=== PATIENT | female | born 1990 | race African-American/Black ===

== ENCOUNTER 2016-07-29 22:56 | Emergency (ER) | payer OTHER ==
[~2016-07-29] VITALS: Ht 157.5 cm; Wt 72.6 kg
[~2016-07-29 22:56] MED LIST: IBUPROFEN800 MG PO
[2016-07-30] MEDS ORDERED: ZOFRAN ODT4 M1 SL (00:20)
[2016-07-30] MEDS ORDERED: CILOXAN5 ML OPH (00:20)
--- NOTE | 2016-07-30 00:20 | ED EYE COMPLAINT ---
History of Present Illness General Chief Complaint: Eye Problems Stated Complaint: ?PINK EYE,BURNING,ITCHY,DISCHARGE Source: patient, old records Exam Limitations: no limitations Vital Signs & Intake/Output Vital Signs & Intake/Output Vital Signs Date Time Temp Pulse Resp B/P Pulse O2 O2 Flow FiO2 Ox Delivery Rate 07/30 0050 97.2 75 18 132/80 99 Room Air 07/30 0049 Room Air 07/29 2259 97.3 78 18 139/81 99 Room Air ED Intake and Output 07/30 0000 07/29 1200 Intake Total Output Total Balance Patient 160 lb Weight Allergies Coded Allergies: NO KNOWN ALLERGIES (07/21/15) Reconcile Medications Ciprofloxacin (Ciloxan) 0.3 % DROPS 2 GTT OPH TID conjunctivitis Ibuprofen 800 MG TAB 1 TAB PO TID PRN PAIN Ondansetron (Zofran Odt) 4 MG TAB.RAPDIS 1 TAB SL TID PRN nausea Triage Note: PT TO ED FOR EYE REDNESS, DRAINAGE AND ITCHINESS. Triage Nurses Notes Reviewed? yes Onset: Abrupt Duration: day(s): (1), constant Timing: recent history Injury Environment: home Severity: moderate Severity Numbers: 5 No Modifying Factors: none Left Eye Associated Symptoms: itching Right Eye Associated Symptoms: itching : No Patient currently breastfeeds: No HPI: 26-year-old male presents to emergency room for evaluation complaining of bilateral eye redness, and itching associated with discharge from both of her eyes since this morning. She states that she used her sister's makeup and yesterday prior to the symptoms beginning. She does wear contacts and glasses however has not worn them since his symptoms began. She denies any vision changes or vision loss, she denies any swelling to her face no recent trauma or injury. No fevers or chills. No modifying factors or associated symptoms otherwise Upon my questioning the patient states that she felt nauseous she denies any abdominal pain chest pain shortness of breath and states that the symptoms suddenly began while she was in the waiting room she denies any change in her bowel movements there's been no episodes of vomiting. (JOSE COTTON,JAUN) Past History Travel History Traveled to [place] past 21 day No Medical History Any Pertinent Medical History? see below for history Neurological: NONE EENT: NONE Cardiovascular: NONE Respiratory: NONE Gastrointestinal: NONE Hepatic: FATTY LIVER Renal: NONE Musculoskeletal: NONE Psychiatric: NONE Endocrine: NONE Surgical History Surgical History: N Psychosocial History What is your primary language Chinese Tobacco Use: Never used Daily Tobacco Use Amount/Type: => 5 Cigarettes daily ETOH Use: denies use Illicit Drug Use: denies illicit drug use Family History Hx Contributory? No (JUAN COY) Review of Systems Review of Systems Constitutional: Reports: see HPI. All Other Systems: Reviewed and Negative Comments Review of systems: See HPI, All other systems negative. Constitutional, no chills no fever, no malaise HEENT: No visual changes no sore throat no congestion, Cardiovascular: No chest pain , no palpitation Skin, no jaundice no rashes, no change in skin Respiratory: No dyspnea no cough no sputum GI: No nausea no vomiting, no diarrhea : No dysuria Muscle skeletal: No joint pain, no joint swelling, no back pain Neurologic: No numbness no headache Psych: No stress Heme/endocrine: No bruising no bleeding Immunology: No lymphadenopathy, (JUAN COY) Physical Exam General Appearance: well developed/nourished, no apparent distress, alert, awake General Inspection: normal inspection Eyelid: normal inspection, everted for exam Conjunctiva/Sclera: injected Cornea: normal inspection EOM: intact Pupil: normal accommodation, normal pupil, PERRL General Inspection: normal inspection Eyelid: normal inspection Conjunctiva/Sclera: injected Cornea: normal inspection EOM: intact Pupil: normal accommodation, normal pupil, PERRL Physical Exam Comments: Well-developed well-nourished patient in no apparent distress. Head/Face: Atraumatic, no maxillary/frontal sinus tenderness, no facial swelling Eyes: PERRL, EOMI, B/L conjunctival injection. No nystagmus there is no periorbital erythema or edema Ear:External auditory canal and Tympanic membranes clear, no erythema, no FB. Nose: atraumatic.Normal inspection: No bleeding, no septal hematoma Throat: Moist mucous membranes.Pharynx normal. No pharyngeal erythema/exudate seen. No stridor/drooling or assymetry. No swelling or edema. Neck: Supple, no lymphadenopathy, FROM Back: FROM, Nontender Cardiovascular: Regular rate and rhythms no murmurs Respiratory: Chest nontender.There were no bony deformities, no asymmetry. No respiratory distress. Patient speaking in full complete sentences. Breath sounds clear to auscultation bilaterally: NO W/R/R Extremities: full range of motion Neuro: Alert and oriented x3 Skin: Warm & dry;No appreciable rash on exposed skin Psych: Mood affect normal, normal memory normal judgment. (JUAN COY) Progress Differential Diagnosis: corneal abrasion, corneal foreign body, conjunctivitis, detached retina, glaucoma Plan of Care: Current Medications Sig/Alfonso Start time Last Medication Dose Stop Time Status Admin Ondansetron HCl 4 MG ONCE ONE 07/30 29 CAN (Zofran) 07/30 30 Prescription for CILOXAN and Zofran provided patient tolerating by mouth here without any episodes of vomiting. Advise close follow-up with her primary care physician, return anytime sooner for symptoms worsen she feels comfortable to splenic cleared for discharge (JUAN COY) Departure Departure Time of Disposition: 16 Disposition: HOME OR SELF CARE Condition: Stable Clinical Impression Primary Impression: Conjunctivitis Referrals: JEFF CAMPBELL,ZULEIKA (PCP/Family) Additional Instructions: Follow-up with your primary care physician this week. Ciprodex eyedrops as discussed Zofran if needed for nausea will compresses ice packs as needed return at anytime sooner if worsen or he have any other concerns. Departure Forms: Customer Survey General Discharge Information Prescriptions: Current Visit Scripts Ondansetron (Zofran Odt) 1 TAB SL TID PRN nausea #10 TAB Ciprofloxacin (Ciloxan) 2 GTT OPH TID #5 ML (JUAN COY) PA/SOCIAL WORK THERAPIST Co-Sign Statement Statement: ED Attending supervision documentation- [] I saw and evaluated the patient. I have also reviewed all the pertinent lab results and diagnostic results. I agree with the findings and the plan of care as documented in the PA's/SOCIAL WORK THERAPIST's documentation. [X] I have reviewed the ED Record and agree with the PA's/SOCIAL WORK THERAPIST's documentation. [] Additions or exceptions (if any) to the PAs/SOCIAL WORK THERAPIST's note and plan are summarized below: [] (DIMPLE CAMPBELL,SKYLAR Rothman)
[2016-07-30 00:50] VITALS: BP 132/80
== END 2016-07-30 00:50 ==
LOC: ERH 22:56
DX: H10.9 Unspecified conjunctivitis (principal)
CPT/HCPCS: J3101